=== PATIENT | male | born 1945 | race Caucasian/White ===

== ENCOUNTER → 2016-10-06 | Outpatient (CLI) | payer MEDICARE, BC ==
[~2016-10-06] MED LIST: ALLOPURINOL300 MG PO; AMLODIPINE BESY10 MG PO; CLOPIDOGREL BIS75 MG PO; CLOPIDOGREL75 MG PO; HCTZ PO; HYDROCHLOROTH12.5 M1 PO; HYDROCHLOROTH12.5 MG PO; LISINOPRIL20 MG PO; MAGNESIUM400 MG PO; NORCO1 TAB 10/3 PO; NORVASC PO; NORVASC10 MG PO; PANTOPRAZOLE SO40 MG PO; PLETAL100 MG PO; PRAVACHOL PO; PRAVASTATIN SOD40 MG PO; PROTONIX PO; SLOW REL IRON160 M1 PO; STOOL SOFTENER1 EAC1 PO; ZOFRAN PO; ZYLOPRIM PO; [UNRECOGNIZED DRUG - REMARK]
--- NOTE | ~2016-10-06 | XA231 ---
[facility] A Service of [facility] RADIOLOGY TEXT RESULTS PATIENT: ABDIAZIZ HARTMAN LOCATION: [facility] : 43 UNIT #: [id number] AGE: [address]: Félix Landaverde MD SEX: M ORDER DR: [id number] [facility] [address]. [place], [place] [address] [id number] O MR#: [id number] Acc #: [id number] NAME: ABDIAZIZ HARTMAN : 1945 SEX: M STUDY DATE/TIME: 10/06/2016 9:02 UNIT: [facility] ROOM: STUDY DESCRIPTION: XA Consult Attending Physician: Félix Landaverde M.D. Ordering Physician: Félix Landaverde M.D. Primary Care Physician: Félix Fields M.D. MEDICAL IMAGING REPORT This report is preliminary unless electronic signature is present PROCEDURE Ultrasound fluoroscopic guided placement of fiducial markers inside a liver tumor. INDICATIONS 70-year-old male with history of metastatic lung cancer. He has a mass within his liver which is to undergo radiation therapy. Fiducial marker placement was requested along the superior inferior lateral medial margins of the tumor. The fluoro time was 2.9 minutes. Reference air kerma was 282 mGy. Medications utilized IV Versed and Fentanyl for conscious sedation. Conscious sedation time was monitored by appropriately credentialed radiology nursing staff. The risks, benefits and alternatives procedure were discussed with the patient and informed consent was obtained. In the procedure room a time-out was performed, confirming correct patient and procedure. Elements of maximum sterile-barrier technique utilized according to guidelines appropriate for the procedure. TECHNIQUE/FINDINGS Ultrasound of the liver was performed and was correlated with CT of the abdomen and pelvis from 09/13/2016. The mass in the right lobe of the liver was identified. Next, under ultrasound guidance 4 separate needles were advanced into the tumor within the superior inferior medial and lateral portions of the tumor. Through each needle a single 4 x 2 Tornado microcoil was deployed. The needle was removed and a sterile dressing was applied. Spot images taken confirming final positioning of the coils. The patient tolerated procedure well without immediate complications. IMPRESSION Technically successful ultrasound fluoroscopic guided placement of a STS. [facility] A Service of [facility] RADIOLOGY TEXT RESULTS PATIENT: ABDIAZIZ HARTMAN LOCATION: [facility] #: [id number] : 43 UNIT #: [id number] AGE: [address]: Félix Landaverde MD SEX: M ORDER DR: fiducial markers within the right lobe liver mass. Dictated by... Keny Goncalves M.D. THIS IS AN ELECTRONICALLY VERIFIED REPORT Keny Goncalves M.D. at 10/06/2016 4:19 PM ARS/gz TD: 10/06/2016 15:02 JOB #: [id number] MEDICAL IMAGING REPORT COPY
[2016-10-06 06:30] LABS: HEMATOCRIT 29.3 % (38.0-50.0); HEMOGLOBIN 9.1 gm/dL (13.0-16.0); MEAN CELL VOLUME 76.1 FL (83-96); MEAN CORPUSCULAR HEMOGLOBIN 23.6 PG (28-34); MEAN PLATELET VOLUME 6.5 FL (6.5-11.5); RED BLOOD COUNT 3.85 X10e (3.90-5.60); WHITE BLOOD COUNT 13.2 X10e3 (4.0-10.5)
[2016-10-06 07:01] LABS: INR 1.1; PARTIAL THROMBOPLASTIN TIME 35.2 SECONDS (23.5-31.3); PROTHROMBIN TIME (PATIENT) 11.6 SECONDS (9.6-11.5)
== END | disposition home or self-care (01) ==
LOC: CIVR 06:04
PROVIDERS: Radiology Radiation Oncology
PROC: 07DR3ZX Extraction of Iliac Bone Marrow, Percutaneous Approach, Diagnostic (ICD-10-PCS; principal; 2016-10-06)
PROC: 079T3ZX Drainage of Bone Marrow, Percutaneous Approach, Diagnostic (ICD-10-PCS; 2016-10-06)
DX: C90.00 Multiple myeloma not having achieved remission (principal); M54.5 Low back pain; F34.1 Dysthymic disorder; C64.2 Malignant neoplasm of left kidney, except renal pelvis; E10.9 Type 1 diabetes mellitus without complications; G47.30 Sleep apnea, unspecified; I10 Essential (primary) hypertension; F32.9 Major depressive disorder, single episode, unspecified; Z87.891 Personal history of nicotine dependence; Z85.53 Personal history of malignant neoplasm of renal pelvis; Z85.46 Personal history of malignant neoplasm of prostate; Z80.42 Family history of malignant neoplasm of prostate; Z80.51 Family history of malignant neoplasm of kidney; Z98.890 Other specified postprocedural states; Z88.8 Allergy status to other drugs, medicaments and biological substances; Z91.040 Latex allergy status; Z91.09 Other allergy status, other than to drugs and biological substances
CPT/HCPCS: 38221; 88305; 88311; 99144; 99153; G0364; 36415; 76140; 76942; 77002; 85027; 85610; 85730; 99152; C1889; J2250; J3010

== ENCOUNTER → 2016-11-20 | Day surgery (SDC) | payer MEDICARE, BC ==
--- NOTE | ~2016-11-20 | HP ---
Unit #: [id number] #: [id number] Patient: ABDIAZIZ HARTMAN [id number] [address] [place], [place] [address] [id number] O MR#: [id number] NAME: ABDIAZIZ HARTMAN ROOM: Age: 70 Sex: M Admission Date: 11/20/2016 : 1945 Attending Physician: Elgin Garcia M.D. Primary Care Physician: Félix Fields M.D. HISTORY AND PHYSICAL CHIEF COMPLAINT Esophageal foreign body. The patient has roast beef stuck in his throat for more than a few hours. He has had similar history in the past HISTORY OF PRESENT ILLNESS The patient was apparently eating a roast beef sandwich when it got stuck and he ended up coming to the emergency room. I was called from the emergency room doctor and patient was thought to be out of it. He mentions difficulty in swallowing his saliva and unable to drink or eat anything. PAST MEDICAL HISTORY Significant for history of COPD, hypertension, and lung cancer, as well as history of peripheral arterial disease. PAST SURGICAL HISTORY Included a cataract surgery, stents placed in the lower extremities. MEDICATIONS AT HOME Pantoprazole, amlodipine, pravastatin, and allopurinol. ALLERGIES He has no known drug allergies. SOCIAL HISTORY He does smoke a pack of cigarettes daily and does not drink alcohol. FAMILY HISTORY There is no family history of colon, pancreatic cancer or liver disease. REVIEW OF SYSTEMS A detailed review of organ system does not reveal any recent weight loss. No history of fevers, chills or rigors. No history of headaches, seizures, chest pain or syncope. No history of cough or expectoration, or hemoptysis. No history of dysuria, hematuria or pyuria. No prior history of focal seizures or extremity weakness. PHYSICAL EXAMINATION GENERAL: She is alert and oriented, and appears comfortable. VITAL SIGNS: Stable with a temperature of 98.2, pulse is 118 per minute and regular. Blood pressure 130/45, respiratory rate 18, oxygen saturation 96% on room air. HEENT: He has no pallor, icterus, lymphadenopathy or peripheral edema. CARDIOVASCULAR: Normal heart sounds. No murmurs of auscultation. Unit #: [id number] #: [id number] Patient: ABDIAZIZ HARTMAN LUNGS: Normal breath sounds. Good air entry. ABDOMEN: Soft, nontender. Liver and spleen are not palpable. Bowel sounds normal. DIAGNOSTIC STUDIES LABORATORY EVALUATION: Not done. CLINICAL IMPRESSION Patient with bolus meat impaction, needs emergent upper endoscopy, which will be done shortly. The pros and cons of procedure, potential risks and complications were discussed with patient, including possibility of perforation, bleeding, complication or agitation. Thank you very much for asking me to see this gentleman. Dictated by Danie Constantino/enrique TD: 11/21/2016 07:28 JOB #: [id number] HISTORY AND PHYSICAL Page 1 of 1 X Elgin Garcia MD X HISTORY AND PHYSICAL
--- NOTE | ~2016-11-20 | OR ---
Unit #: [id number] #: [id number] Patient: ABDIAZIZ HARTMAN [id number] [facility] [address] [place], [place] [address] [id number] O MR#: [id number] NAME: ABDIAZIZ HARTMAN ROOM: Date of Procedure: 11/20/2016 Admission Date: 11/20/2016 Surgeon: Elgin Garcia M.D. : 1945 Attending Physician: Elgin Garcia M.D. Primary Care Physician: Félix Fields M.D. OPERATIVE REPORT PRIMARY CARE PHYSICIAN Félix Fields M.D. REFERRING PHYSICIAN Emergency Room at [facility]. PREOPERATIVE DIAGNOSIS The patient had presented with history of bolus meat impaction after eating roast beef and has come with dysphagia. PROCEDURES PERFORMED Upper gastrointestinal endoscopy and dilation. 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 This was dilated using a 15 to 18 mm TTS balloon. The foreign body had already passed into the stomach. The patient had lot of food residue in the stomach. RECOMMENDATIONS 1. Pantoprazole 40 mg p.o. daily. 2. The patient needs to follow up in the office in 2 to 3 months' time. He must continue on pantoprazole on a long-term basis. SEDATION USED MAC. DESCRIPTION OF PROCEDURE Following detailed explanation of potential risks and complications of an upper endoscopy, namely perforation, bleeding, and complication related to sedation, the patient was brought to GI lab and laid in the left lateral decubitus position. Lubricated tip of the Olympus video upper endoscope was passed through the bite block into the proximal esophagus under direct vision. The entire esophageal mucosa was examined and the patient was noted to have distal esophageal benign stricture. This had a classic appearance. No food or bolus meat was seen in this area. The scope was then advanced into the gastric cavity and copious amounts of solid food residue was noted. The scope was then withdrawn in the distal esophagus. A 15 to 18 mm TTS balloon was passed through the accessory channel of the scope and step-up dilation of distal esophageal stricture was done up to 18 mm. Excellent dilation was achieved. Photodocumentation was obtained. Minimal bleeding was noted, which was resolved after lavage with saline. Unit #: [id number] #: [id number] Patient: ABDIAZIZ HARTMAN The scope was then withdrawn all the way up to pharynx. No additional findings were noted. The patient tolerated the procedure without any postprocedure complications. Dictated by... Danie Constantino TD: 11/21/2016 01:29 JOB #: [id number] OPERATIVE REPORT Page 1 of 1 X Elgin Garcia MD X PROCEDURE OPERATIVE NOTE
--- NOTE | ~2016-11-20 | EKG ---
PATIENT: ABDIAZIZ HARTMAN UNIT #: [id number] Ventricular Rate: 100 BPM Atrial Rate: 100 BPM P-R Interval: 144 ms QRS Duration: 74 ms Q-T Interval: 348 ms QTC Calculation(Bezet): 448 ms P [place]: 10 degrees Calculated R [place]: 16 degrees Calculated T [place]: 78 degrees Diagnosis Line: Sinus rhythm with Premature atrial complexes Diagnosis Line: Otherwise normal ECG Diagnosis Line: When compared with ECG of 29-NOV-2015 16:10, Diagnosis Line: Premature atrial complexes are now Present Diagnosis Line: QRS duration has decreased Diagnosis Line: ST now depressed in Anterior leads Diagnosis Line: T wave inversion no longer evident in Diagnosis Line: Anterolateral leads Diagnosis Line: Confirmed by PAMELA ORTIZ MD ([id number]) on 11/20/2016 Diagnosis Line: 11:09:41 PM INTERPRETING MD: ANGEL HIGGINBOTHAM
== END | disposition home or self-care (01) ==
LOC: CED 19:39 → CSUR 21:22
DX: T18.128A Food in esophagus causing other injury, initial encounter (principal); K22.2 Esophageal obstruction; F17.210 Nicotine dependence, cigarettes, uncomplicated; J44.9 Chronic obstructive pulmonary disease, unspecified; I10 Essential (primary) hypertension; I73.9 Peripheral vascular disease, unspecified; Z85.118 Personal history of other malignant neoplasm of bronchus and lung; M19.90 Unspecified osteoarthritis, unspecified site; D64.9 Anemia, unspecified
CPT/HCPCS: 93005; 99285

== ENCOUNTER → 2016-12-11 | Outpatient (CLI) | payer MEDICARE, BC ==
--- NOTE | ~2016-12-11 | CT57 ---
[facility] A Service [facility] RADIOLOGY TEXT RESULTS PATIENT: ABDIAZIZ HARTMAN LOCATION: [facility] : 43 UNIT #: [id number] AGE: [address]: Tino Mcgovern MD SEX: M ORDER DR: [id number] [facility]. [place], [place] [address] [id number] O MR#: [id number] [facility] #: [id number] NAME: ABDIAZIZ HARTMAN : 1945 SEX: M STUDY DATE/TIME: 12/11/2016 9:07 UNIT: [facility] ROOM: STUDY DESCRIPTION: CT Chest Wo Cont Attending Physician: Tino Mcgovern M.D. Referring Physician: Tino Mcgovern M.D. Ordering Physician: Tino Mcgovern M.D. Primary Care Physician: Félix Fields M.D. MEDICAL IMAGING REPORT This report is preliminary unless electronic signature is present EXAM CT chest without contrast INDICATION Restaging left lung cancer. Patient is status post radiation therapy. Observation for response to therapy and metastatic disease. PROCEDURE Unenhanced CT of the chest. TECHNIQUE This CT exam was performed with one or more of the following radiation dose reduction techniques: automatic exposure control, adjustment of mA and/or kV according to patient size, and iterative reconstruction. COMPARISON 09/13/2016 FINDINGS There is continued dense consolidation in the posterior left lung base with central cavitation and air bronchograms. Findings in the left lung base are not significantly changed. Pleural-based mass in the right middle lobe is significantly improved. There is some residual scarring seen in this region but no appreciable mass is seen. Emphysema. Diffuse subpleural scarring is also present. Lack of contrast makes evaluation of the mediastinum difficult. There is some soft tissue fullness and obscuration of fat planes particularly in the right hilum and in the pericarinal region. This is very similar to the previous study. No definite enlarging mediastinal nodes. Coronary artery calcification. No aggressive appearing bone lesion. [facility] A Service of [facility] RADIOLOGY TEXT RESULTS PATIENT: ABDIAZIZ HARTMAN LOCATION: [facility] : 43 UNIT #: [id number] AGE: [address]: Tino Mcgovern MD SEX: M ORDER DR: IMPRESSION 1. The right middle lobe pleural base mass is significantly improved with only some residual linear opacity, probably scar remaining. 2. Stable dense consolidation with central cavitation and air bronchograms in the left lower lobe. 3. No new nodule seen. 4. Persistent soft tissue is seen in the right hilum and pericarinal region and is unchanged. No new or enlarging adenopathy is seen in the chest. 5. Refer to the separately dictated CT of the abdomen for findings below the diaphragm. Dictated by... Evaristo Saunders M.D. THIS IS AN ELECTRONICALLY VERIFIED REPORT Evaristo Saunders M.D. at 12/12/2016 3:55 PM Jose Eduardo TD: 12/12/2016 08:51 JOB #: [id number] MEDICAL IMAGING REPORT Page 1 of 1 COPY
--- NOTE | ~2016-12-11 | CT7 ---
[facility] A Service of [facility] RADIOLOGY TEXT RESULTS PATIENT: ABDIAZIZ HARTMAN [facility] : 43 UNIT #: [id number] AGE: [address]: Tino Mcgovern MD SEX: M ORDER DR: [id number] [id number] [facility]. [place], [place] [address] [id number] O MR#: [id number] Acc #: [id number] NAME: ABDIAZIZ HARTMAN : 1945 SEX: M STUDY DATE/TIME: 12/11/2016 9:07 UNIT: [facility] ROOM: STUDY DESCRIPTION: CT Abdomen Wo Cont Attending Physician: Tino Mcgovern M.D. Referring Physician: Tino Mcgovern M.D. Ordering Physician: Tino Mcgovern M.D. Primary Care Physician: Félix Fields M.D. MEDICAL IMAGING REPORT This report is preliminary unless electronic signature is present EXAM CT abdomen without contrast INDICATIONS Restaging lung cancer. Observation for metastatic disease. PROCEDURE Unenhanced CT of the abdomen The CT exam was performed with one or more of the following radiation dose reduction techniques: automatic exposure control, adjustment of mA and/or kV according to patient size, and iterative reconstruction. COMPARISON 09/13/2016 FINDINGS Refer to the separately dictated CT of the chest for thoracic findings. There has been interval placement of fiducial markers into the previously demonstrated low-attenuation mass in the central liver. There is extensive geographic low attenuation in the central liver, that measures approximately 13.8 x 6.3 cm. The previously demonstrated mass measured up to 6.4 cm. There is a possibly new 1.7 cm low-attenuation lesion in the posterior right hepatic lobe. Liver is not well characterized given lack of IV contrast. Hepatosplenomegaly. Liver measures 20 cm. Spleen measures 13.4 cm. Left renal cyst not significantly changed. Adrenal gland unremarkable. Pancreas atrophic. Multiple stones in the gallbladder. Small hiatal hernia. The included bowel loops are nondilated. There is a umbilical [facility] A Service of [facility] RADIOLOGY TEXT RESULTS PATIENT: ABDIAZIZ HARTMAN LOCATION: [facility] : 43 UNIT #: [id number] AGE: [address]: Tino Mcgovern MD SEX: M ORDER DR: hernia that measures 1.6 cm and contains a knuckle of small bowel. No aggressive appearing bone lesion. IMPRESSION 1. Interval placement of fiducial markers into the previously demonstrated hepatic mass. There is fairly extensive geographic low attenuation in the central liver, larger than the mass shown on the previous study. It is favored to represent postradiation change but progression of disease is not excluded on this study and should be followed closely. 2. Suspected new 1.7 cm lesion in the posterior right hepatic lobe. 3. Small umbilical hernia contains a knuckle of small bowel. 4. Other incidental findings are detailed above. Dictated by... Evaristo Saunders M.D. THIS IS AN ELECTRONICALLY VERIFIED REPORT Evaristo Saunders M.D. at 12/12/2016 3:55 PM BRIA/tess TD: 12/12/2016 08:52 JOB #: [id number] MEDICAL IMAGING REPORT Page 1 of 1 COPY
== END | disposition home or self-care (01) ==
LOC: CCAT 08:39
DX: C34.92 Malignant neoplasm of unspecified part of left bronchus or lung (principal); R91.8 Other nonspecific abnormal finding of lung field; K42.9 Umbilical hernia without obstruction or gangrene
CPT/HCPCS: 71250; 74150

== ENCOUNTER 2017-01-01 20:50 | Inpatient (IN) | payer MEDICARE, BC ==
--- NOTE | ~2017-01-01 | EKG ---
PATIENT: ABDIAZIZ HARTMAN UNIT #: [id number] Ventricular Rate: 82 BPM Atrial Rate: 82 BPM P-R Interval: 144 ms QRS Duration: 86 ms Q-T Interval: 354 ms QTC Calculation(Bezet): 413 ms P [place]: 28 degrees Calculated R [place]: 38 degrees Calculated T [place]: 110 degrees Diagnosis Line: Sinus rhythm with Premature atrial complexes Diagnosis Line: Low voltage QRS Diagnosis Line: Nonspecific T wave abnormality Diagnosis Line: Abnormal ECG Diagnosis Line: When compared with ECG of 01-JAN-2017 22:45, Diagnosis Line: (unconfirmed) Diagnosis Line: Premature atrial complexes are now Present Diagnosis Line: Confirmed by MATT HERZOG MD ([id number]) on Diagnosis Line: 01/03/2017 8:46:55 AM INTERPRETING MD: ROSENDA HIGGINBOTHAM
--- NOTE | ~2017-01-01 | DS ---
Unit #: [id number] #: [id number] Patient: ABDIAZIZ LEONARD [id number] [address] [address] [id number] I MR#: [id number] NAME: ABDIAZIZ LEONARD ROOM: 560 Age: 71 Sex: M Admission Date: 01/02/2017 : 1945 Discharge Date: 01/05/2017 Attending Physician: Fidelia Glover M.D. Primary Care Physician: Félix Fields M.D. DISCHARGE SUMMARY PRINCIPAL DIAGNOSES 1. Hypercalcemia secondary to stage IV non-small cell lung cancer with associated liver metastasis. 2. Pneumonia, likely aspiration. 3. Stage IV non-small cell lung cancer with new liver metastasis, followed by Dr. Mcgovern. 4. Chronic obstructive pulmonary disease. 5. Iron deficiency anemia. 6. Peripheral arterial disease. 7. Discharge thrombocytopenia, platelet count 95,000. 8. Acute on chronic leukocytosis, discharge white blood cell count 17.9. 9. Severe protein malnutrition. 10. Severe deconditioning. 11. Hypermagnesemia, treatment. 12. Thrush. 13. Esophageal dysphagia. CONSULTANTS Dr. Mcgovern, oncology. DIAGNOSTIC STUDIES IMAGING: CT of the head without contrast, January 01, 2017, with no acute intracranial findings. Chest x-ray on January 02, 2017 with improving aeration of the left lower lobe. CT of the head with contrast, January 03, 2017, with generalized atrophy. No abnormal enhancement. Atrophy is advanced for patient's age. There is a small area of decreased attenuation of the right basal ganglia consistent with small lacunar infarct. CLINICAL HISTORY AND HOSPITAL COURSE Mr. Leonard is a 71-year-old male with a history of stage IV non-small cell lung cancer who was brought to the emergency department after multiple falls at home. Please refer to H and P for further details. In the emergency department the patient was found to be mildly hypotensive, in addition to having a white blood cell count of 20,000. He was also found to have hypercalcemia with a calcium level of 12.8. Patient was subsequently admitted. In regard to patient's hypercalcemia, he was given a single dose of Zometa and placed on IV fluids. Calcium level gradually decreased, and on day of discharge calcium level is now down to 10.9. Dr. Mcgovern was consulted Unit #: [id number] #: [id number] Patient: ABDIAZIZ LEONARD given patient's history of non-small cell lung cancer, for which the patient has had associated hypercalcemia in the past. Imaging studies done in early December of 2016 demonstrate progression of disease, particularly in the liver, and this was discussed with the patient and his family. Plan is to initiate immunotherapy following his stay in rehab. Hospice was discussed with the patient, and at this time he is refusing. In regard to the patient's leukocytosis, he was started on empiric Rocephin. Urinalysis and blood cultures were unremarkable. However, he was significantly dehydrated upon presentation and did complain of some dysphagia. On Rocephin therapy, white blood cell count decreased. I suspect he has some underlying mild aspiration pneumonia. However, he does have, also, chronic leukocytosis with white blood cell counts generally ranging anywhere from 12 to 20. Will complete a short course of Omnicef, and white blood cell count can be monitored as an outpatient. I will also note he did receive a single dose of dexamethasone, and this may be contributing somewhat to his leukocytosis. In regard to -414 he was seen by speech therapy and is felt to have esophageal dysphagia. He will continue on mechanical soft, ground meats, with thin liquids and 6 small meals daily. Patient has developed thrombocytopenia during hospitalization on Lovenox. Lovenox has been discontinued. This can be followed up as an outpatient particularly given we are going to reinitiate Plavix due to his significant peripheral vascular disease. Patient is also significantly deconditioned and is agreeable to rehab. Patient was also found to have iron deficiency anemia. He has been placed on oral iron supplementation, and this can be followed up by Dr. Mcgovern as an outpatient. DISCHARGE CONDITION Stable. DISCHARGE STATUS Discharge to subacute rehab. DISCHARGE MEDICATIONS 1. Tylenol 650 mg p.o. q.4 hours p.r.n. pain. 2. Nystatin swish and swallow 10 mL p.o. t.i.d. to stop after dose on January 09, 2017. 3. Omnicef 300 mg p.o. b.i.d. to stop after dose on January 09, 2017. 4. Pravastatin 40 mg at bedtime. 5. Ferrous gluconate 324 mg b.i.d. 6. Allopurinol 300 mg daily. 7. Plavix 75 mg daily. 8. Pantoprazole 40 mg b.i.d. DISCHARGE INSTRUCTIONS Patient was instructed to follow a regular diet. Again, he should have mechanical soft with ground meats and thin liquids and should have 6 small meals daily. He can increase his activity as tolerated under the care of physical and occupational therapy. FOLLOW-UP Patient will follow up with Dr. Mcgovern upon discharge from rehab and will Unit #: [id number] #: [id number] Patient: ABDIAZIZ LEONARD initiate chemotherapy at that time per his recommendations. Dictated by... Fidelia Glover M.D. ERICH/ernesto TD: 01/05/2017 08:54 JOB #: [id number] DISCHARGE SUMMARY Page 1 of 1 X Fidelia Glover MD X DISCHARGE SUMMARY
--- NOTE | ~2017-01-01 | CO ---
Unit #: [id number] #: [id number] Patient: ABDIAZIZ HARTMAN [id number] [address] [place], [place] [address] [id number] I MR#: [id number] NAME: ABDIAZIZ HARTMAN ROOM: 560 Age: 71 Sex: M Admission Date: 01/02/2017 : 1945 Attending Physician: Fidelia Glover M.D. Primary Care Physician: Félix Fields M.D. Consultation Date: 01/02/2017 CONSULTATION REPORT REASON FOR EVALUATION Patient with multiple falls and hypercalcemia, please evaluate. HISTORY OF PRESENT ILLNESS This 71-year-old gentleman who nearly exactly a year ago had presented with increased confusion and hypercalcemia and was found to have a stage III nonsmall-cell lung cancer treated with radiation and chemotherapy, had excellent response, followed by outpatient whereby he developed recurrent disease in the lung and the liver, status post Keytruda therapy, followed by radiation, now presents with hypercalcemia and repeated falls at home. PAST MEDICAL HISTORY His past history is mainly remarkable for acute on chronic bronchitis, hyperlipidemia, hypertension, and COPD. FAMILY HISTORY Coronary artery disease and hypertension. Negative for multiple cancers. SOCIAL HISTORY A 50 pack smoking history. Apparently nonsmoker and no alcohol usage. Retired. Has a supportive brother who is in the room with him. ALLERGIES No known allergies. CURRENT CHRONIC MEDICATIONS 1. Zometa. 2. Tylenol. 3. Lovenox. 4. Protonix. 5. Periodic pain medication, hydrocodone/APAP. REVIEW OF SYSTEMS Tiredness, stumbling at home, falls, and loss of memory. Otherwise, six or eight systems are within normal limits. He has not been drinking enough fluids and not eating enough. He states that there has been no appetite. PHYSICAL EXAMINATION GENERAL: Very (1) gentleman. HEENT: Edentulous. Has stumbling speech and difficult to understand sometimes. Moderately pale. LYMPHATICS: No supraclavicular, axillary, or groin nodes. LUNGS: Clear. Unit #: [id number] #: [id number] Patient: ABDIAZIZ HARTMAN CARDIOVASCULAR: Distant S1 and S2. ABDOMEN: Liver is about 12 cm midclavicular line palpable below the costal margin. No ascites. No jaundice. CENTRAL NERVOUS SYSTEM: Examined grossly only. Cranial nerves appear intact. Memory was not checked. He moves upper and lower extremities with some atrophy of muscles. But otherwise, detailed DIRECTOR MEDICAL WRITING exam was not performed. RECTAL: Not performed. DIAGNOSTIC STUDIES LABORATORY: Glucose 73, BUN 32, creatinine 0.9, GFR 84, sodium 136, potassium 3.9, chloride 106, CO2 of 25, calcium 12, albumin 1.8, magnesium 1.5, and total protein 5.7. Hemoglobin 8.3, hematocrit 28.1, white count 16, and platelets 163,000. IMPRESSION This 71-year-old gentleman well known to us who exactly a year ago had stage III nonsmall-cell lung cancer, hypercalcemia treated with fluids and Zometa, radiation, chemotherapy, has recurrent disease in the liver, status post extra radiation and Keytruda, now presents with hypercalcemia and repeated falls. So at this point, I agree with IV fluids and IV Zometa. Will proceed with some Lasix, dexamethasone, and CT of the brain with contrast, and depending on the findings, proceed further. All this was discussed with patient's brother, and I told him to leave his phone number with us in case we need to contact him. Dictated by... Danie Welsh/dani TD: 01/02/2017 18:03 JOB #: [id number] CONSULTATION REPORT Page 1 of 1 X Tino Mcgovern MD X CONSULTATION REPORT
--- NOTE | ~2017-01-01 | CT69 ---
[facility] A Service of [facility] RADIOLOGY TEXT RESULTS PATIENT: ABDIAZIZ HARTMAN LOCATION: [facility] [address] : 43 UNIT #: [id number] AGE: [address]: Fidelia Glover MD SEX: M ORDER DR: [id number] [facility] [address] [facility]. [place], [place] [address] [id number] I MR#: [id number] Acc #: [id number] NAME: ABDIAZIZ HARTMAN : 1945 SEX: M STUDY DATE/TIME: 01/03/2017 11:40 UNIT: [facility] ROOM: [facility] STUDY DESCRIPTION: CT Head W Contrast Attending Physician: Fidelia Glover M.D. Ordering Physician: Tino Mcgovern M.D. Primary Care Physician: Félix Fields M.D. MEDICAL IMAGING REPORT This report is preliminary unless electronic signature is present EXAM Noncontrast head CT. HISTORY Multiple falls at home since 01/01/17. Patient confused. COMPARISON Head CT, 01/01/2017. TECHNIQUE This CT exam was performed with one or more of the following radiation dose reduction techniques: automatic exposure control, adjustment of mA and/or kV according to patient size, and iterative reconstruction. FINDINGS Axial noncontrast imaging of the brain demonstrates generalized atrophy. Mild prominence of the sulci and ventricles. No mass, mass effect or midline shift. No hemorrhage. Normal intracranial enhancement postcontrast. Bony calvaria, skull base, mastoids and sinuses unremarkable. IMPRESSION 1. Generalized atrophy. 2. No abnormal enhancement postcontrast. 3. Not mentioned above, there is a small area of decreased attenuation right basal ganglia suggesting a small lacunar infarct. 4. Generalized atrophy, which appears somewhat advanced for the patient's stated age. Dictated by... Ana Goncalves M.D. [facility] A Service of [facility] RADIOLOGY TEXT RESULTS PATIENT: ABDIAZIZ HARTMAN LOCATION: [facility] 560 : 43 UNIT #: [id number] AGE: [address]: Fidelia Glover MD SEX: M ORDER DR: THIS IS AN ELECTRONICALLY VERIFIED REPORT Ana Goncalves M.D. at 01/04/2017 8:37 AM Makenzie TD: 01/03/2017 18:30 JOB #: [id number] MEDICAL IMAGING REPORT Page 1 of 1 COPY
--- NOTE | ~2017-01-01 | HP ---
Unit #: [id number] #: [id number] Patient: ABDIAZIZ AHRTMAN [id number] [address] [address] [id number] I MR#: [id number] NAME: ABDIAZIZ HARTMAN ROOM: 560 Age: 71 Sex: M Admission Date: 01/02/2017 : 1945 Attending Physician: Tanya Gomez M.D. Primary Care Physician: Félix Fields M.D. HISTORY AND PHYSICAL CHIEF COMPLAINT Multiple falls, dehydration, hypercalcemia. HISTORY This 71-year-old male with metastatic non-small cell lung cancer, anemia, peripheral vascular disease, is admitted for multiple falls, dehydration and hypercalcemia. The patient notes increasing weakness over the past two weeks with postural lightheadedness and falls. Actually fell five times within 24 hours recently. He presented to this emergency department last evening where his blood pressure was on the lower side of 91/38. Labs are notable for dehydration and hypercalcemia. The patient also has a white blood count of 20 but no infectious symptoms. In the ER, he was bolused with 2 L of saline and referred for admission. Did require Zometa in the past for hypercalcemia due to his lung cancer. PAST MEDICAL HISTORY 1. Non-small cell lung cancer to liver, status post XRT, followed by Dr. Mcgovern. 2. History of anemia. 3. Gastritis with ulcerative esophagitis, Hanley esophagus and meat impaction requiring EGD and dilation. 4. Peripheral vascular disease, status post bilateral lower extremity stent placement. 5. Hypertension. 6. Hyperlipidemia. 7. Gout. 8. Hypercalcemia due to malignancy in the past. 9. Bilateral cataract extraction. 10. Subclavian PowerPort placed 11/2015. ALLERGIES None. HOME MEDICATIONS Unknown. The patient obtains medications through [email or web address] [place]. FAMILY HISTORY Hypertension. SOCIAL HISTORY The patient lives alone. He stopped smoking 16 years ago, does not drink Unit #: [id number] #: [id number] Patient: ABDIAZIZ HARTMAN alcohol. REVIEW OF SYSTEMS Notable for poor p.o. intake with weight loss, falling, weakness, lightheadedness, metastatic lung cancer, anemia, gastritis, esophagitis, peripheral vascular disease, hypertension, gout, above mentioned surgeries. All other systems were reviewed and are otherwise negative. PHYSICAL EXAMINATION GENERAL APPEARANCE: Pleasant, thin, 71-year-old male, currently in no acute distress. He is quite weak on exam. He needs two assistants just to sit up. VITAL SIGNS: Temperature 97.6, pulse 90, respirations 18. Initial blood pressure 91/38. O2 saturation 97% on room air. HEENT: Eyes PERRLA. Extraocular muscles are intact. Pharynx - very dry mucosal membranes. NECK: Supple without adenopathy or thyromegaly. CHEST: A few crackles at the bases. Bruising noted over the upper back. CARDIAC: Normal S1 and S2 without definite murmur. There is a PowerPort in place right chest. ABDOMEN: Bowel sounds are present. Perhaps some mild hepatomegaly on exam. Nontender, no masses. Midline hernia noted. EXTREMITIES: Without edema. Pedal pulses are present but diminished. There could be a splinter hemorrhage noted over the third left fingernail bed. NEUROLOGIC EXAM: The patient is awake, alert, oriented. His cranial nerves are intact. He has equal strength throughout but is extremely weak on exam. He needs two assistants just to sit up. DIAGNOSTIC STUDIES LABORATORY: Hematocrit is 30, white blood count is 20, MCV 75. Normal platelet count. SMA-12 - BUN 40, sodium 133, chloride is 99, calcium is 12.8 but with an albumin of 2.1 corrects to closer to 15. AST 55, alkaline phos. 387. Cardiac markers negative. Urinalysis - positive bile. IMAGING: Head CT - no acute disease. Chest x-ray shows improved aeration left lower lobe. CARDIOVASCULAR: EKG - normal sinus rhythm, rate 80. Nonspecific ST wave flattening. ASSESSMENT 1. Multiple falls secondary to dehydration and hypercalcemia. 2. Dehydration. 3. Hypercalcemia secondary to non-small cell lung cancer. 4. Metastatic non-small cell lung cancer, status post XRT. Followed by Dr. Tino Mcgovern. 5. History of hypertension with low blood pressure at present. 6. Leukocytosis which may be reactive. Rule out infectious. 7. Right chest MediPort. 8. Peripheral vascular disease, status post bilateral lower extremity stent placement. Unit #: [id number] #: [id number] Patient: ABDIAZIZ HARTMAN 9. Gout. 10. History of esophagitis. PLANS 1. IV fluids. 2. One dose of Zometa 4 mg IV and repeat labs. 3. One dose of antibiotics pending blood cultures and will ask for procalcitonin level in the morning. 4. Consult oncology in the morning. 5. DVT prophylaxis. 6. Obtain medication list. 7. Physical therapy to evaluate. Patient may need rehab, etc. Dictated by Tanya Gomez M.D. AML/df TD: 01/02/2017 05:21 JOB #: [id number] HISTORY AND PHYSICAL Page 1 of 1 X Tanya Gomez MD X HISTORY AND PHYSICAL
--- NOTE | ~2017-01-01 | A ---
[facility] Nutrition Therapy DATE: 01/02/17 Patient: ABDIAZIZ HARTMAN Physician: SANNA Address: [address] [place] [address] Room/Bed: [address] [place] [address], Zip: [place] [address] Admit Date: 01/02/17 Date of : 41 Height: 5 9 Weight: 153 69.5 NUTRITIONAL ASSESSMENT: REASON: 2 NUTRITION RISK PT RE: 10# WEIGHT LOSS + POOR PO INTAKE PT IS 71 Y.O. MALE ADMITTED FOR FALLS, DEHYDRATION, HYPERCALEMIA PMH: STAGE 3 NON-SMALL CELL LUNG CA S/P XRT, PVD, GOUT, POST'S ESOPHAGUS, HTN, HLD, GASTRITIS, ESOPHAGITIS Anthropometrics: 5'11", WT: 145# (PER PT) (66 KG), BMI: 20.2, 84%IBW Labs: BUN: 32, CA+:12.0, ALB: 1.8, AST: 43 Meds: PROTONIX, LAXATIVE, NACL I/O & Bowel function: 90/- Skin Integrity: DRY FLAKY SKIN Estimated Nutrition Needs: INCREASED NUTRIENT NEEDS 2' ?WEIGHT LOSS, DECREASED PO INTAKE AND APPETITE Assessment: CHART REVIEWED AND EVENTS NOTED. PT SEEN FOR WEIGHT LOSS. PT REPORTS DECREASED PO INTAKE AND APPETITE PAST SEVERAL DAYS. OF NOTE, PT LIVES ALONE. PER FAMILY IN ROOM, PT TOOKE BITES OF LUNCH THIS AFTERNOON. PT TO HAVE DENTURES BUT WAS NOT IN ROOM AT TIME OF VISIT. PT REPORTS "A FEW POUND WEIGHT LOSS" BUT PER [employer], PT WEIGHED ~150# IN SEP 2016. THIS RD ENCOURAGED ADEQUATE KCAL AND PROTEIN INTAKE, PT AGREED TO ENSURE SHAKES TID W/MEALS, RD TO ORDER. PT AND FAMILY REPORTED NO DIET QUESTIONS AT THIS TIME. RD TO FOLLOW. Dx: INADEQUATE NUTRIENT INTAKE R/T CLINICAL DIAGNOSIS, PMH AEB PT REPORT ABOVE, WEIGHT LOSS NOTED. Intervention: 1. MECHANICAL GROUND DIET + STRAW ENSURE SHAKES TID Monitoring, Evaluation and Goals: 1. ORAL INTAKE; CONSUME >50% OF MEALS AND SUPPLEMENTS W/NO C/O N/V/D 2. WEIGHTS; PREVENT FURTHER WEIGHT LOSS; PRESERVE LEAN BODY MASS 3. LABS; WNL MONITOR: -PO INTAKE/APPETITE -WEIGHTS [facility] Nutrition Therapy DATE: 01/02/17 Patient: ABDIAZIZ BARTONLEY Physician: SANNA Address: [address] [place] [address] Room/Bed: [address] [place] [address], Zip: [place] [address] Admit Date: 01/02/17 Date of : 41 Height: 5 9 Weight: 153 69.5 -SUPPLEMENT INTAKE Recommendations: 1. PLEASE ORDER STRAW ENSURE SHAKES TID W/MEALS 2. APPRECIATE FAMILY AND STAFF TO ENCOURAGE ADEQUATE PO INTAKE RD WILL F/U PER PROTOCOL PT IS MODERATELY COMPROMISED Respectfully, QUINCY SHER MS, RD, LD [employer] cc: client file
--- NOTE | ~2017-01-01 | CT71 ---
[facility] A Service [facility] RADIOLOGY TEXT RESULTS PATIENT: ABDIAZIZ HARTMAN LOCATION: [facility] : 43 UNIT #: [id number] AGE: [address]: Fidelia Glover MD SEX: M ORDER DR: [id number] [place] [id number] [facility]. [place], [place] [address] [id number] I MR#: [id number] Acc #: [id number] NAME: ABDIAZIZ HARTMAN. : 1945 SEX: M STUDY DATE/TIME: 01/01/2017 23:16 UNIT: [facility] ROOM: [facility] STUDY DESCRIPTION: CT Head Wo Contrast Attending Physician: Fidelia Glover M.D. Ordering Physician: Maggy Harry M.D. Primary Care Physician: Félix Fields M.D. MEDICAL IMAGING REPORT This report is preliminary unless electronic signature is present EXAM CT head INDICATION Confusion. Possible head injury. Hypertension. TECHNIQUE CT head without contrast. This CT exam was performed with one or more of the following radiation dose reduction techniques: automatic exposure control, adjustment of mA and/or kV according to patient size, and iterative reconstruction. COMPARISON None available. FINDINGS There is no acute intracranial hemorrhage, mass lesion, or acute infarct. There is mild global cerebral atrophy. The ventricles and basilar cisterns are normal in size AND configuration. No extraaxial collections. No acute osseous abnormalities. Visualized paranasal sinuses are clear. IMPRESSION No acute intracranial findings. Dictated by... Selvin Almaraz M.D. THIS IS AN ELECTRONICALLY VERIFIED REPORT Selvin Almaraz M.D. at 01/04/2017 12:23 AM [facility] A Service [facility] RADIOLOGY TEXT RESULTS PATIENT: ABDIAZIZ HARTMAN LOCATION: [facility] : 43 UNIT #: [id number] AGE: [address]: Fidelia Glover MD SEX: M ORDER DR: Sadia TD: 01/02/2017 03:25 JOB #: [id number] MEDICAL IMAGING REPORT Page 1 of 1 COPY
--- NOTE | ~2017-01-01 | CR72 ---
[facility] A Service of [facility] RADIOLOGY TEXT RESULTS PATIENT: ABDIAZIZ HARTMAN LOCATION: [facility] 560-01 : 43 UNIT #: [id number] AGE: [address]: Fidelia Glover MD SEX: M ORDER DR: [id number] [facility] [address] [facility]. [place], [place] [address] [id number] I MR#: [id number] Acc #: [id number] NAME: ABDIAZIZ HARTMAN : 1945 SEX: M STUDY DATE/TIME: 01/02/2017 0:54 UNIT: [facility] ROOM: [facility] STUDY DESCRIPTION: CR Chest Single View Portable Attending Physician: Fidelia Glover M.D. Ordering Physician: Maggy Harry M.D. Primary Care Physician: Félix Fields M.D. MEDICAL IMAGING REPORT This report is preliminary unless electronic signature is present EXAM Single view chest INDICATION Weakness and shortness of air. Multiple falls. FINDINGS Single portable AP view chest compared to 11/29/2015. There is a right chest wall port. The heart and mediastinal contours are unchanged. There is minimal linear airspace opacities in both lung bases. Aeration in the left lower lobe has improved since the recent CT scan. There is background emphysema. IMPRESSION Improving aeration in the left lower lobe compared to the recent CT scan. Dictated by... Selvin Almaraz M.D. THIS IS AN ELECTRONICALLY VERIFIED REPORT Selvin lAmaraz M.D. at 01/02/2017 9:06 PM VANESA/selma TD: 01/02/2017 04:03 JOB #: [id number] MEDICAL IMAGING REPORT Page 1 of 1 COPY
--- NOTE | ~2017-01-01 | EKG ---
PATIENT: ABDIAZIZ HARTMAN UNIT #: [id number] Ventricular Rate: 80 BPM Atrial Rate: 80 BPM P-R Interval: 146 ms QRS Duration: 82 ms Q-T Interval: 364 ms QTC Calculation(Bezet): 419 ms P Armbrust: 31 degrees Calculated R Armbrust: 38 degrees Calculated T Armbrust: 98 degrees Diagnosis Line: Normal sinus rhythm Diagnosis Line: Nonspecific T wave abnormality Diagnosis Line: Abnormal ECG Diagnosis Line: When compared with ECG of 20-NOV-2016 18:18, Diagnosis Line: Premature atrial complexes are no longer Present Diagnosis Line: Nonspecific T wave abnormality, worse in Diagnosis Line: Anterolateral leads Diagnosis Line: Confirmed by MATT HERZOG MD ([id number]) on Diagnosis Line: 01/03/2017 8:46:24 AM INTERPRETING MD: ROSENDA HIGGINBOTHAM
[2017-01-01 22:52] LABS: BASOPHIL% 0.1 % (0-2.5); DIFF IND YES; EOSINOPHIL% 0.1 % (0.0-7.0); HEMOGLOBIN 9.1 gm/dL (13.0-16.0); LYMPHOCYTE# 0.2 X10e3 (1.0-3.5); LYMPHOCYTE% 1.1 % (17.0-45.0); MEAN CELL VOLUME 75.7 FL (83-96); MEAN CORPUSCULAR HEMOGLOBIN 22.9 PG (28-34); MEAN CORPUSCULAR HGB CONC 30.3 g/dL (30-36); MEAN PLATELET VOLUME 7.6 FL (6.5-11.5); MONOCYTE# 0.7 X10e3 (0-1.0); MONOCYTE% 3.5 % (3.0-12.0); NEUTROPHIL# 19.1 X10e3 (1.5-7.1); NEUTROPHIL% 95.2 % (40-75); PLATELET COUNT 191 X10e3 (140-420); RED BLOOD COUNT 3.96 X10e (3.90-5.60); RED CELL DISTRIBUTION WIDTH 18.8 % (11.0-15.5)
[2017-01-01 22:52] LABS: POC - CKMB 3.4 ng/mL (0.0-7.9); POC - TROPONIN <0.05 ng/mL (<=0.05)
[2017-01-01 23:03] LABS: INR 1.4; PARTIAL THROMBOPLASTIN TIME 37.8 SECONDS (23.5-31.3); PROTHROMBIN TIME (PATIENT) 14.6 SECONDS (9.6-11.5)
[2017-01-01 23:13] LABS: HYPOCHROMIA SL; MICROCYTOSIS SL; ROULEAUX SLIGHT
[2017-01-01 23:17] LABS: PLATELET ESTIMATE NORMAL (NORMAL)
[2017-01-01 23:18] LABS: ALBUMIN SERUM 2.1 g/dL (3.5-5.0); BILIRUBIN, DIRECT 0.8 mg/dL (0.0-0.2); BILIRUBIN,INDIRECT 1.1 mg/dL (0.0-0.9); BILIRUBIN,TOTAL 1.9 mg/dL (0.2-2.0); CALCIUM SERUM 12.8 mg/dL (8.4-10.2); GLOM FILT RATE Estimated 74.3 mL/min (>60); POTASSIUM 3.7 mmol/L (3.5-5.1); PROTEIN TOTAL SERUM 6.8 g/dL (6.0-8.3)
[2017-01-01 23:21] LABS: URINE SOURCE CLEAN CATCH
[2017-01-01 23:29] LABS: URINE APPEARANCE CLEAR; URINE BLOOD NEG (NEG); URINE COLOR DK YELLOW; URINE GLUCOSE NEG (NEG); URINE KETONE NEG (NEG); URINE LEUKOCYTE ESTERASE NEG (NEG); URINE NITRATE NEG (NEG); URINE PROTEIN NEG (NEG); URINE SPECIFIC GRAVITY 1.018 (1.003-1.035)
[2017-01-01 23:42] LABS: CULTURE INDICATED? NO; URINE BILIRUBIN POS (NEG)
[2017-01-02 00:07] LABS: POC - CKMB 2.9 ng/mL (0.0-7.9); POC - TROPONIN <0.05 ng/mL (<=0.05)
[2017-01-02 13:17] LABS: BASOPHIL% 0.1 % (0-2.5); HEMATOCRIT 28.1 % (38.0-50.0); HEMOGLOBIN 8.3 gm/dL (13.0-16.0); LYMPHOCYTE# 0.3 X10e3 (1.0-3.5); LYMPHOCYTE% 1.9 % (17.0-45.0); MEAN CELL VOLUME 77.2 FL (83-96); MEAN CORPUSCULAR HEMOGLOBIN 22.9 PG (28-34); MEAN CORPUSCULAR HGB CONC 29.7 g/dL (30-36); MEAN PLATELET VOLUME 7.9 FL (6.5-11.5); MONOCYTE# 0.7 X10e3 (0-1.0); MONOCYTE% 4.3 % (3.0-12.0); NEUTROPHIL% 93.7 % (40-75); PLATELET COUNT 163 X10e3 (140-420); RED BLOOD COUNT 3.63 X10e (3.90-5.60); RED CELL DISTRIBUTION WIDTH 19.1 % (11.0-15.5)
[2017-01-02 13:20] LABS: DIFF IND NO
[2017-01-02 13:55] LABS: ALBUMIN SERUM 1.8 g/dL (3.5-5.0); BILIRUBIN,TOTAL 1.4 mg/dL (0.2-2.0); BUN/CREATININE RATIO 35.55; CREATININE SERUM 0.9 mg/dL (0.6-1.4); GLOM FILT RATE Estimated 84.4 mL/min (>60); POTASSIUM 3.9 mmol/L (3.5-5.1); PROTEIN TOTAL SERUM 5.7 g/dL (6.0-8.3)
[2017-01-02 16:40] LABS: IRON SERUM 11 ug/dL (45-182); TOTAL IRON BINDING CAPACITY 165 ug/dL (252-460); TRANSFERRIN 118 mg/dL (180-329); TRANSFERRIN SATURATION 7 % (20-50)
[2017-01-03 07:09] LABS: MEAN CELL VOLUME 77.1 FL (83-96); MEAN CORPUSCULAR HGB CONC 29.9 g/dL (30-36); MEAN PLATELET VOLUME 7.7 FL (6.5-11.5); RED BLOOD COUNT 3.96 X10e (3.90-5.60); RED CELL DISTRIBUTION WIDTH 19.6 % (11.0-15.5)
[2017-01-03 07:14] LABS: HEMATOCRIT 30.5 % (38.0-50.0); HEMOGLOBIN 9.1 gm/dL (13.0-16.0)
[2017-01-03 07:44] LABS: ALBUMIN SERUM 1.8 g/dL (3.5-5.0); BILIRUBIN,TOTAL 1.2 mg/dL (0.2-2.0); BUN/CREATININE RATIO 33.75; CALCIUM SERUM 11.4 mg/dL (8.4-10.2); CREATININE SERUM 0.8 mg/dL (0.6-1.4); GLOM FILT RATE Estimated 88.7 mL/min (>60); MAGNESIUM 1.5 mg/dL (1.6-3.0); PHOSPHOROUS 2.9 mg/dL (2.5-4.6); POTASSIUM 3.9 mmol/L (3.5-5.1); PROTEIN TOTAL SERUM 6.1 g/dL (6.0-8.3)
[2017-01-04 06:47] LABS: HEMATOCRIT 30.4 % (38.0-50.0); MEAN CELL VOLUME 76.9 FL (83-96); MEAN CORPUSCULAR HEMOGLOBIN 22.7 PG (28-34); MEAN CORPUSCULAR HGB CONC 29.5 g/dL (30-36); MEAN PLATELET VOLUME 8.1 FL (6.5-11.5); RED BLOOD COUNT 3.95 X10e (3.90-5.60); RED CELL DISTRIBUTION WIDTH 18.8 % (11.0-15.5)
[2017-01-04 06:56] LABS: WHITE BLOOD COUNT 20.1 X10e3 (4.0-10.5)
[2017-01-04 08:44] LABS: CALCIUM SERUM 10.9 mg/dL (8.4-10.2); CREATININE SERUM 0.7 mg/dL (0.6-1.4); GLOM FILT RATE Estimated 93.7 mL/min (>60); MAGNESIUM 1.9 mg/dL (1.6-3.0)
[2017-01-05 06:31] LABS: HEMATOCRIT 28.4 % (38.0-50.0); HEMOGLOBIN 8.4 gm/dL (13.0-16.0); MEAN CELL VOLUME 77.1 FL (83-96); MEAN CORPUSCULAR HEMOGLOBIN 22.8 PG (28-34); MEAN CORPUSCULAR HGB CONC 29.6 g/dL (30-36); MEAN PLATELET VOLUME 8.7 FL (6.5-11.5); RED BLOOD COUNT 3.69 X10e (3.90-5.60); RED CELL DISTRIBUTION WIDTH 19.2 % (11.0-15.5); WHITE BLOOD COUNT 17.9 X10e3 (4.0-10.5)
== END 2017-01-06 17:37 | DRG 180 ==
LOC: CED 20:50 → CEDOF 01-02 02:30 → C5B 01-02 02:30 → CED 01-02 02:31 → CEDOF 01-02 02:31 → C5B 01-02 03:49
PROVIDERS: Emergency Medicine; Internal Medicine
DX: C34.90 Malignant neoplasm of unspecified part of unspecified bronchus or lung (principal); J69.0 Pneumonitis due to inhalation of food and vomit; E43 Unspecified severe protein-calorie malnutrition; J44.9 Chronic obstructive pulmonary disease, unspecified; D69.6 Thrombocytopenia, unspecified; C78.7 Secondary malignant neoplasm of liver and intrahepatic bile duct; E83.41 Hypermagnesemia; E86.0 Dehydration; D50.9 Iron deficiency anemia, unspecified; I73.9 Peripheral vascular disease, unspecified; B37.9 Candidiasis, unspecified; R13.19 Other dysphagia; I10 Essential (primary) hypertension; E78.5 Hyperlipidemia, unspecified; M10.9 Gout, unspecified; Z98.42 Cataract extraction status, left eye; Z98.41 Cataract extraction status, right eye; Z82.49 Family history of ischemic heart disease and other diseases of the circulatory system; Z91.81 History of falling
CPT/HCPCS: 36415; 70450; 70460; 71010; 80048; 80053; 80076; 81003; 82308; 82550; 82553; 82607; 82947; 83540; 83550; 83605; 83735; 84100; 84443; 84484; 85025; 85027; 85610; 85730; 87040; 92526; 92610; 93005; 96360; 97110; 97116; 97163; 97530; 97535; 99285; G8978-GP; G8979-GP; G8996-GN; G8997-GN; G8998-GN; J0696; J1100; J1642; J1650; J1940; J3370; J3475; J3489; Q9967